=== PATIENT | female | born 1995 | race Caucasian/White ===

== ENCOUNTER 2016-12-31 15:25 | Emergency (ER) | payer OTHER ==
[2016-12-31 15:42] VITALS: RESP 16; TEMP 98.2; O2SAT 96
[2016-12-31] MEDS ORDERED: ONDANSETRON 4 MG/2 ML VIAL IVP ONE (15:43)
[2016-12-31] MEDS ORDERED: NS 1,000 ML IV ONE ×2 (15:43→16:06)
--- NOTE | 2016-12-31 16:11 | EDPHY ---
H & P Time Seen by Provider: 12/31/16 15:45 HPI/ROS: CHIEF COMPLAINT: Shaky and nausea HISTORY OF PRESENT ILLNESS: Patient says she went out drinking last night and woke up hung over. About an hour prior to my evaluation at 3:00 p.m. she started getting achy and feeling very shaky. Diffuse myalgias and anxiety and nausea and tingling and numbness in her face and her hands. Symptoms moderate. No actual vomiting. No fever or chills. No recent travel. REVIEW OF SYSTEMS: Eye: no change in vision ENT: no sore throat Cardiac: no chest pain or syncope Pulmonary: No coughing. She felt like she was breathing heavily and weak at the onset of her symptoms. Abdomen: HPI, no abdominal pain Musculoskeletal: no back pain Skin: no rash Neuro: Mild headache Constitutional: no fever : no urinary symptoms A comprehensive 10 point review of systems is otherwise negative aside from elements mentioned in the history of present illness. PAST MEDICAL HISTORY: On SSRI for depression, recurrent hypoglycemia, seasonal allergies Social history: Alcohol last night, no drugs. No recent travel or immobilization. General Appearance: Alert and conversant, cooperative. Eyes: No scleral icterus. ENT, Mouth: Dry mucous membranes. Respiratory: Normal respiratory effort, breath sounds equal, lungs are clear to auscultation. Speaking in full sentences. Cardiovascular: Regular rate and rhythm. Gastrointestinal: Abdomen is soft and non tender. Neurological: Alert and oriented x3. Normally conversant. Face symmetric, normal movement and sensation in all extremities. Skin: Warm and dry, no rashes. Musculoskeletal: No peripheral edema and no joint swelling. Psychiatric: Moderately anxious otherwise normal. Emergency Department course/MDM: Clearly clinically has dehydration, complicated either by hyperventilation or perhaps the onset of a mild viral syndrome. Plan for rehydration, a antiemetic, labs to include glucose. 1655: Tearful, hyperventilating, crying, complaining of bilateral leg cramps. 1 mg Ativan IV. 1723: Sleeping easily awakened feels better. 1855: Hungry and thirsty, feels better, stable for discharge. Smoking Status: Never smoked Constitutional: Initial Vital Signs Temperature (C) 36.8 C 12/31/16 15:40 Heart Rate 98 12/31/16 15:40 Respiratory Rate 16 10/15/17 15:40 Blood Pressure 180/92 H 12/31/16 15:40 O2 Sat (%) 96 12/31/16 15:40 O2 Delivery Mode Room Air Allergies/Adverse Reactions: amoxicillin Allergy (Verified 12/31/16 15:39) Home Medications: Medication Instructions Recorded Sertraline HCl 12/31/16 Medical Decision Making - Data Points Laboratory Results: Laboratory Results 12/31/16 15:45 12/31/16 15:45 12/31/16 12/31/16 12/31/16 15:45 15:45 15:45 WBC 14.45 10^3/uL H 10^3/uL (3.80-9.50) RBC 4.65 10^6/uL 10^6/uL (4.18-5.33) Hgb 14.1 g/dL g/dL (12.6-16.3) Hct 39.9 % % (38.0-47.0) MCV 85.8 fL fL (81.5-99.8) MCH 30.3 pg pg (27.9-34.1) MCHC 35.3 g/dL g/dL (32.4-36.7) RDW 12.5 % % (11.5-15.2) Plt Count 259 10^3/uL 10^3/uL (150-400) MPV 9.7 fL fL (8.7-11.7) Neut % (Auto) 78.5 % H % (39.3-74.2) Lymph % (Auto) 15.7 % % (15.0-45.0) [place] % (Auto) 4.4 % L % (4.5-13.0) Eos % (Auto) 0.5 % L % (0.6-7.6) Baso % (Auto) 0.3 % % (0.3-1.7) Nucleat RBC Rel Count 0.0 % % (0.0-0.2) Absolute Neuts (auto) 11.34 10^3/uL H 10^3/uL (1.70-6.50) Absolute Lymphs (auto) 2.27 10^3/uL 10^3/uL (1.00-3.00) Absolute Monos (auto) 0.64 10^3/uL 10^3/uL (0.30-0.80) Absolute Eos (auto) 0.07 10^3/uL 10^3/uL (0.03-0.40) Absolute Basos (auto) 0.05 10^3/uL 10^3/uL (0.02-0.10) Absolute Nucleated RBC 0.00 10^3/uL 10^3/uL (0-0.01) Immature Gran % 0.6 % % (0.0-1.1) Immature Gran # 0.08 10^3/uL 10^3/uL (0.00-0.10) Sodium 139 mEq/L mEq/L (134-144) Potassium 3.8 mEq/L mEq/L (3.5-5.2) Chloride 102 mEq/L mEq/L (97-110) Carbon Dioxide 25 mEq/l mEq/l (22-31) Anion Gap 12 mEq/L mEq/L (8-16) BUN 15 mg/dL mg/dL (7-23) Creatinine 0.8 mg/dL mg/dL (0.6-1.0) Estimated GFR > 60 Glucose 115 mg/dL H mg/dL (70-100) Calcium 9.5 mg/dL mg/dL (8.5-10.4) Beta HCG, Qual NEGATIVE Medications Given: Discontinued Medications Sodium Chloride (Ns) 1,000 mls @ 0 mls/hr IV ONCE ONE PRN Reason: Wide Open Stop: 12/31/16 15:44 Last Admin: 12/31/16 15:50 Dose: 1,000 mls Sodium Chloride (Ns) 1,000 mls @ 0 mls/hr IV EDNOW ONE; Wide Open PRN Reason: Protocol Stop: 12/31/16 16:07 Last Admin: 12/31/16 16:15 Dose: 1,000 mls Lorazepam (Ativan Injection) 1 mg IVP EDNOW ONE Stop: 12/31/16 16:56 Last Admin: 12/31/16 16:58 Dose: 1 mg Ondansetron HCl (Zofran) 4 mg IVP EDNOW ONE Stop: 12/31/16 15:44 Last Admin: 12/31/16 15:50 Dose: 4 mg Departure - Departure Disposition: Home, Routine, Self-Care Clinical Impression: Dehydration, Muscle spasm of both lower legs Condition: Good Instructions: Dehydration (ED) Referrals: TAVO OSBORNE [Other] - As per Instructions
[2016-12-31 16:17] LABS: % IMMATURE GRANULYOCYTES 0.6 % (0.0-1.1); ABSOLUTE IMMATURE GRANULOCYTES 0.08 10^3/uL (0.00-0.10); ADD DIFF? NO; ADD MORPH? NO; ADD SCAN? NO; ATYPICAL LYMPHOCYTE FLAG 10 (0-99); FRAGMENT RBC FLAG 0 (0-99); HEMATOCRIT 39.9 % (38.0-47.0); HEMOGLOBIN 14.1 g/dL (12.6-16.3); LEFT SHIFT FLG 0 (0-99); LIPEMIA HEMOLYSIS FLAG 90 (0-99); MEAN CELL HEMOGLOBIN 30.3 pg (27.9-34.1); MEAN CELL HEMOGLOBIN CONCENTR. 35.3 g/dL (32.4-36.7); MEAN CELL VOLUME 85.8 fL (81.5-99.8); MEAN PLATELET VOLUME 9.7 fL (8.7-11.7); PLATELET CLUMPS FLAG 0 (0-99); PLATELET COUNT 259 10^3/uL (150-400); RED BLOOD CELL COUNT 4.65 10^6/uL (4.18-5.33); RED CELL DISTRIBUTION WIDTH 12.5 % (11.5-15.2)
[2016-12-31 16:22] LABS: ANION GAP 12 mEq/L (8-16); CALCIUM 9.5 mg/dL (8.5-10.4); CARBON DIOXIDE 25 mEq/l (22-31); CHLORIDE 102 mEq/L (97-110); CREATININE 0.8 mg/dL (0.6-1.0); GLOMERULAR FILTRATION RATE > 60; GLUCOSE 115 mg/dL (70-100); POTASSIUM 3.8 mEq/L (3.5-5.2); SODIUM 139 mEq/L (134-144)
[2016-12-31] MEDS ORDERED: LORazepam 2 MG/ML INJ IVP ONE (16:55)
[2016-12-31 19:12] VITALS: BP 161/78; PULSE 90
== END 2016-12-31 19:12 | disposition home or self-care (01) ==
DX: E86.0 Dehydration (principal); M62.831 Muscle spasm of calf; E86.9 Volume depletion, unspecified
CPT/HCPCS: 96374; J2060; J2405

== ENCOUNTER 2017-01-01 12:54 | Emergency (ER) | payer OTHER ==
[2017-01-01] MEDS ORDERED: NS 1,000 ML IV ONE (13:41)
[2017-01-01] MEDS ORDERED: KETOROLAC 30 MG/1 ML SDV IVP ONE (13:42)
--- NOTE | 2017-01-01 13:45 | EDPHY ---
H & P Stated Complaint: elevated d-dimer @ [facility], sent for r/o PE. seen here yest. for URI. Time Seen by Provider: 01/01/17 13:42 HPI/ROS: HPI: This is a 29-year-old female who presents with Chief Complaint: Elevated D-dimer Location: Body Quality: Aches Duration: 2 days Signs and Symptoms: No fever, + fatigue, no shortness of breath, + muscle aches , no sore throat, no headache, no head neck stiffness Timing: Acute Severity: Moderate to severe Context: Patient presents from [facility] for negative influenza test and elevated D-dimer. She reports that for the last 2 days she has been experiencing fatigue, chills, and body aches. To believe that she had the flu but the test was negative today. She had a little bit of a dry cough yesterday but has not persisted. + poor appetite but no vomiting. Denies dysuria/vaginal bleeding/vaginal discharge. Patient has an IUD. Denies any recent long distance trips. Originally from [place]. Modifying Factors: No [id number]-[id number] medications tried Comment: ROS: see HPI Constitutional: No fever, no chills, no weight loss Eyes: No blurred vision Respiratory: No shortness of breath, no cough Cardiovascular: No chest pain Gastrointestinal: No nausea, no vomiting, no diarrhea Genitourinary: No dysuria Extremities: + myalgias Neurologic: No weakness, no numbness Skin: No rashes Hematologic: No bruising, no bleeding MEDICAL/SURGICAL/SOCIAL HISTORY: Medical history: Generally healthy. Does not take any regular medications. Surgical history: Denies Social history: Currently a college student at [employer] CONSTITUTIONAL: Pleasant well-developed well-nourished young adult white female awake and alert, no obvious distress HEENT: Atraumatic and normocephalic, PERRL, EOMI. Tympanic membranes clear. Oropharynx clear, no exudate and moist pink mucosa. Airway patent. No lymphadenopathy. No meningismus. Cardiovascular: Normal S1/S2, mild tachycardia, regular rhythm, without murmur rub or gallop. PULMONARY/CHEST: Symmetrical and nontender. Clear to auscultation bilaterally. Good air movement. No accessory muscle usage. ABDOMEN: Soft, nondistended, nontender, no rebound, no guarding, no peritoneal signs, no masses or organomegaly. No CVAT. EXTREMITIES: 2/2 pulses, no deformities, no clubbing, no cyanosis or edema. NEUROLOGICAL: no focal neuro deficits. GCS 15. SKIN: Warm and dry, no erythema. no rash. Good capillary refill. Source: Patient Exam Limitations: No limitations - Personal History LMP (Females 10-55): IUD In Place Current Tetanus/Diphtheria Vaccine: Yes Current Tetanus Diphtheria and Acellular Pertussis (TDAP): Yes Tetanus Vaccine Date: < 10 years - Medical/Surgical History Hx Asthma: No Hx Chronic Respiratory Disease: No Hx Diabetes: No Hx Cardiac Disease: No Hx Renal Disease: No Hx Cirrhosis: No Hx Alcoholism: No Hx HIV/AIDS: No Hx Splenectomy or Spleen Trauma: No Other PMH: hypoglycemia, seasonal allergies, ADHD, depression - Social History Smoking Status: Never smoked Constitutional: Initial Vital Signs Temperature (C) 37.2 C 01/01/17 13:03 Heart Rate 100 01/01/17 13:03 Respiratory Rate 16 01/01/17 13:03 Blood Pressure 109/75 01/01/17 13:03 O2 Sat (%) 95 01/01/17 13:03 O2 Delivery Mode Room Air Allergies/Adverse Reactions: amoxicillin Allergy (Verified 12/31/16 15:39) Home Medications: Medication Instructions Recorded Sertraline HCl 12/31/16 Medical Decision Making - Diagnostics Imaging Results: Imaging Impressions Chest/Thorax CTA 01/01/17 13:41 Impression: 1. No evidence of thrombopulmonary embolic disease. 2. Minimal bronchitis. Results called and discussed with Clari Gloria PA-C, at 01/01/2017 15:52. ED Course/Re-evaluation: Labs, IV fluids, CTA chest, stool studies ordered Given 1 L normal saline, p.o. Tylenol and IV Toradol given Heart rate 100 upon arrival. Afebrile. 1500: LABS REVIEWED; mild leukocytosis, guaiac negative, UA no infection, potassium 3.3-given p.o. potassium supplementation 20 mEq; magnesium level ordered [place] negative CTA chest reviewed with Dr. Cooper; no pulmonary embolism seen. 1545: Called by radiologist and CT scan a chest shows no pulmonary embolism/ pneumonia Review re-evaluated vital signs at discharge in heart rate normalized with IV fluids No signs of meningitis/acute kidney injury/dehydration/urinary tract infection/ sepsis Differential Diagnosis: Shortness of breath including but not limited to pulmonary infectious process, pulmonary embolus and viral syndrome, anxiety. - Data Points Laboratory Results: Laboratory Results 01/01/17 13:21 01/01/17 13:21 01/01/17 01/01/17 01/01/17 14:50 14:20 13:21 WBC RBC Hgb Hct MCV MCH MCHC RDW Plt Count MPV Neut % (Auto) Lymph % (Auto) [place] % (Auto) Eos % (Auto) Baso % (Auto) Nucleat RBC Rel Count Absolute Neuts (auto) Absolute Lymphs (auto) Absolute Monos (auto) Absolute Eos (auto) Absolute Basos (auto) Absolute Nucleated RBC Immature Gran % Immature Gran # Sodium Potassium Chloride Carbon Dioxide Anion Gap BUN Creatinine Estimated GFR Glucose Calcium Magnesium 1.6 mg/dL mg/dL (1.6-2.3) Urine Color COLORLESS Urine Appearance CLEAR Urine pH 6.0 (5.0-7.5) Ur Specific [place] 1.001 L (1.002-1.030) Urine Protein NEGATIVE (NEGATIVE) Urine Ketones NEGATIVE (NEGATIVE) Urine Blood NEGATIVE (NEGATIVE) Urine Nitrate NEGATIVE (NEGATIVE) Urine Bilirubin NEGATIVE (NEGATIVE) Urine Urobilinogen NEGATIVE EU EU (0.2-1.0) Ur Leukocyte Esterase NEGATIVE (NEGATIVE) Urine Glucose NEGATIVE (NEGATIVE) Stool Occult Bld Scrn NEGATIVE (NEGATIVE) C. difficile Tox (PCR) Cancelled Monoscreen 01/01/17 01/01/17 01/01/17 13:21 13:21 13:21 WBC 12.34 10^3/uL H 10^3/uL (3.80-9.50) RBC 4.25 10^6/uL 10^6/uL (4.18-5.33) Hgb 12.9 g/dL g/dL (12.6-16.3) Hct 37.3 % L % (38.0-47.0) MCV 87.8 fL fL (81.5-99.8) MCH 30.4 pg pg (27.9-34.1) MCHC 34.6 g/dL g/dL (32.4-36.7) RDW 12.5 % % (11.5-15.2) Plt Count 191 10^3/uL D 10^3/uL (150-400) MPV 9.9 fL fL (8.7-11.7) Neut % (Auto) 88.4 % H % (39.3-74.2) Lymph % (Auto) 7.4 % L % (15.0-45.0) [place] % (Auto) 3.6 % L % (4.5-13.0) Eos % (Auto) 0.0 % L % (0.6-7.6) Baso % (Auto) 0.2 % L % (0.3-1.7) Nucleat RBC Rel Count 0.0 % % (0.0-0.2) Absolute Neuts (auto) 10.91 10^3/uL H 10^3/uL (1.70-6.50) Absolute Lymphs (auto) 0.91 10^3/uL L 10^3/uL (1.00-3.00) Absolute Monos (auto) 0.44 10^3/uL 10^3/uL (0.30-0.80) Absolute Eos (auto) 0.00 10^3/uL L 10^3/uL (0.03-0.40) Absolute Basos (auto) 0.03 10^3/uL 10^3/uL (0.02-0.10) Absolute Nucleated RBC 0.00 10^3/uL 10^3/uL (0-0.01) Immature Gran % 0.4 % % (0.0-1.1) Immature Gran # 0.05 10^3/uL 10^3/uL (0.00-0.10) Sodium 135 mEq/L mEq/L (134-144) Potassium 3.3 mEq/L L mEq/L (3.5-5.2) Chloride 103 mEq/L mEq/L (97-110) Carbon Dioxide 21 mEq/l L mEq/l (22-31) Anion Gap 11 mEq/L mEq/L (8-16) BUN 9 mg/dL mg/dL (7-23) Creatinine 0.8 mg/dL mg/dL (0.6-1.0) Estimated GFR > 60 Glucose 145 mg/dL H mg/dL (70-100) Calcium 8.8 mg/dL mg/dL (8.5-10.4) Magnesium Urine Color Urine Appearance Urine pH Ur Specific [place] Urine Protein Urine Ketones Urine Blood Urine Nitrate Urine Bilirubin Urine Urobilinogen Ur Leukocyte Esterase Urine Glucose Stool Occult Bld Scrn C. difficile Tox (PCR) Monoscreen NEGATIVE (NEGATIVE) Medications Given: Discontinued Medications Acetaminophen (Tylenol) 1,000 mg PO EDNOW ONE Stop: 01/01/17 15:40 Last Admin: 01/01/17 15:45 Dose: 1,000 mg Sodium Chloride (Ns) 1,000 mls @ 0 mls/hr IV ONCE ONE; Wide Open PRN Reason: Protocol Stop: 01/01/17 13:42 Last Admin: 01/01/17 13:53 Dose: 1,000 mls Ketorolac Tromethamine (Toradol) 30 mg IVP EDNOW ONE Stop: 01/01/17 13:43 Last Admin: 01/01/17 13:47 Dose: Not Given Potassium Chloride (Potassium Chloride Oral Liquid) 20 meq PO EDNOW ONE Stop: 01/01/17 15:12 Last Admin: 01/01/17 15:45 Dose: 20 meq Departure - Departure Disposition: Home, Routine, Self-Care Clinical Impression: Viral syndrome Condition: Good Instructions: Viral Syndrome (ED) Additional Instructions: Rest as much as possible over the next few days. Drink plenty of fluids included electrolyte replacement once like Gatorade and Powerade to prevent dehydration. Take Tylenol or ibuprofen as needed for headache, pain, inflammation. Referrals: JON Villatoro,. [Primary Care Provider] - As per Instructions Stand Alone Forms: School Excuse
[2017-01-01 13:47] LABS: % IMMATURE GRANULYOCYTES 0.4 % (0.0-1.1); ABSOLUTE IMMATURE GRANULOCYTES 0.05 10^3/uL (0.00-0.10); ADD DIFF? NO; ADD MORPH? NO; ADD SCAN? NO; ATYPICAL LYMPHOCYTE FLAG 0 (0-99); FRAGMENT RBC FLAG 0 (0-99); HEMATOCRIT 37.3 % (38.0-47.0); HEMOGLOBIN 12.9 g/dL (12.6-16.3); LEFT SHIFT FLG 30 (0-99); LIPEMIA HEMOLYSIS FLAG 90 (0-99); MEAN CELL HEMOGLOBIN 30.4 pg (27.9-34.1); MEAN CELL HEMOGLOBIN CONCENTR. 34.6 g/dL (32.4-36.7); MEAN CELL VOLUME 87.8 fL (81.5-99.8); MEAN PLATELET VOLUME 9.9 fL (8.7-11.7); PLATELET CLUMPS FLAG 0 (0-99); PLATELET COUNT 191 10^3/uL (150-400); RED BLOOD CELL COUNT 4.25 10^6/uL (4.18-5.33); RED CELL DISTRIBUTION WIDTH 12.5 % (11.5-15.2)
[2017-01-01 13:58] LABS: ANION GAP 11 mEq/L (8-16); CALCIUM 8.8 mg/dL (8.5-10.4); CARBON DIOXIDE 21 mEq/l (22-31); CHLORIDE 103 mEq/L (97-110); CREATININE 0.8 mg/dL (0.6-1.0); GLOMERULAR FILTRATION RATE > 60; GLUCOSE 145 mg/dL (70-100); POTASSIUM 3.3 mEq/L (3.5-5.2); SODIUM 135 mEq/L (134-144)
[2017-01-01 15:01] LABS: COLOR COLORLESS; LEUKOCYTE ESTERASE,URINE NEGATIVE (NEGATIVE); NITRITE,URINE NEGATIVE (NEGATIVE)
[2017-01-01] MEDS ORDERED: POTASSIUM CL 20 MEQ/15 ML UDCUP PO ONE (15:11)
[2017-01-01] MEDS ORDERED: ACETAMINOPHEN 500 MG TAB PO ONE (15:39)
[2017-01-01 16:12] VITALS: BP 100/60; PULSE 78; RESP 15; TEMP 97.7; O2SAT 98
== END 2017-01-01 16:15 | disposition home or self-care (01) ==
DX: B34.9 Viral infection, unspecified (principal); E86.9 Volume depletion, unspecified